=== PATIENT | male | born 1935 | race Caucasian/White ===

== ENCOUNTER 2020-10-01 09:43 | Emergency (ER) | payer BC, OTHER ==
[2020-10-01 09:51] VITALS: BMI 55.2
[2020-10-01] MEDS ORDERED: ACETAMINOPHEN 325 MG TABLET (FP) PO ONE (10:56)
[2020-10-01] MEDS ORDERED: DIPHTH,PERTUSS(ACELL),TET 0.5 ML DISP.SYRIN IM ONE ×2 (10:57→12:33)
[2020-10-01 12:02] LABS: BASO % 0.2 % (0-2.0); HEMATOCRIT 47.9 % (35.4-49); HEMOGLOBIN 16.2 GM/dL (11.7-16.9); LYMPH % 11.1 % (8-40); MCH 30.1 pg (25.7-33.7); MCHC 33.8 g/dl (32.0-35.9); MEAN CELL VOLUME 88.9 fl (80-96); MEAN PLT VOLUME 9.2 fl (7.5-11.1); MONO % 8.1 % (3.8-10.2); NEUT % 79.6 % (42.8-82.8); PLATELET COUNT 180 K/MM3 (134-434); RBC 5.39 M/mm3 (4.00-5.60); RDW 14.7 % (11.9-15.9); WHITE BLOOD COUNT 9.9 K/mm3 (4.0-10.0)
[2020-10-01 12:09] LABS: INR 1.1 (0.83-1.09); PROTHROMBIN TIME (PATIENT) 13.5 SEC (9.7-13.0)
[2020-10-01 12:12] LABS: ACTIVATED PTT 30.1 SECONDS (25.2-36.5)
[2020-10-01] MEDS ORDERED: ACETAMINOPHEN 325 MG TABLET (FP) ONE (12:32)
[2020-10-01 12:37] LABS: CALCIUM 10.3 mg/dL (8.5-10.1)
[2020-10-01 12:38] LABS: ALBUMIN 3.6 g/dl (3.4-5.0); BLOOD UREA NITROGEN 20.1 mg/dL (7-18)
[2020-10-01 12:41] LABS: CREATININE 1.1 mg/dL (0.55-1.3)
[2020-10-01 12:42] LABS: TOT PROT 6.7 g/dl (6.4-8.2)
[2020-10-01 14:55] VITALS: BP 100/69; PULSE 89; TEMP 98.5
== END 2020-10-01 14:54 | disposition home or self-care (01) ==
LOC: JER 09:43
PROC: 3E0234Z Introduction of Serum, Toxoid and Vaccine into Muscle, Percutaneous Approach (ICD-10-PCS; principal; 2020-10-01)
DX: S82.832A Other fracture of upper and lower end of left fibula, initial encounter for closed fracture (principal); S09.90XA Unspecified injury of head, initial encounter; S01.01XA Laceration without foreign body of scalp, initial encounter
CPT/HCPCS: 36415; 70450-TC; 72125-TC; 72170-TC-FY; 73110-TC-RT-FY; 73130-TC-RT-FY; 73590-TC-LT-FY; 73610-TC-LT-FY; 80053; 82550; 82553; 84484; 85025; 85610; 85730; 90471; 90715; 99285-25

== ENCOUNTER 2020-10-08 04:18 | Inpatient (IN) | payer BC ==
[2020-10-08] MEDS ORDERED: BUPIVACAINE HCL 100 ML ONE (08:25)
[2020-10-08] MEDS ORDERED: BUPIVACAINE LIPOSOME/PF (EXPAREL) 266 MG/20 ML VIAL ONE (08:25)
[2020-10-08] MEDS ORDERED: SODIUM CHLORIDE 0.9% P/F 10 ML VIAL IJ ONE ×2 (08:30→08:32)
[2020-10-08] MEDS ORDERED: MIDAZOLAM HCL 2 MG/2 ML SINGLE DOSE VIAL ONE ×2 (08:30)
[2020-10-08] MEDS ORDERED: PROPOFOL 20 ML ONE (09:34)
[2020-10-08] MEDS ORDERED: BUPIVACAINE HCL 50 ML ONE (10:15)
[2020-10-08] MEDS ORDERED: ceFAZolin SODIUM 1 GM VIAL IVPB ONE (10:25)
[2020-10-08] MEDS ORDERED: ceFAZolin SODIUM 1 GM VIAL ONE (10:39)
[2020-10-08] MEDS ORDERED: ceFAZolin 2 GRAM PREMIX BAG IVPB ONE (11:00)
[2020-10-08] MEDS ORDERED: ONDANSETRON 4 MG/2 ML VIAL IVPUSH PRN (14:17)
[2020-10-08] MEDS ORDERED: LACTATED RINGERS SOLUTION 1,000 ML IV SCH (14:30)
[2020-10-08] MEDS: ceFAZolin 2 GRAM PREMIX BAG IVPB SCH (17:11)
[2020-10-08] MEDS: oxyCODONE HCL 5 MG TABLET PO PRN (23:18)
[2020-10-09] MEDS: ceFAZolin 2 GRAM PREMIX BAG IVPB SCH (01:51)
[2020-10-09] MEDS: ASPIRIN COATED 81 MG TABLET.EC PO SCH (09:14)
[2020-10-09] MEDS: HYDROCHLOROTHIAZIDE 25 MG TABLET (FP) PO SCH (09:14)
[2020-10-09] MEDS: MULTIVITAMINS THER W-MINERALS COMBO TABLET (FP) PO SCH (09:14)
[2020-10-09] MEDS: oxyCODONE HCL 5 MG TABLET PO PRN (09:16)
[2020-10-09] MEDS ORDERED: PATIENT'S OWN MEDICATION (NON-FORMULARY) (Timolol Maleate/Pf [Timolol Maleate 0.5% Eye Dro OP SCH (10:00)
[2020-10-09 17:21] VITALS: BMI 24.5
[2020-10-10] MEDS: ASPIRIN COATED 81 MG TABLET.EC PO SCH (09:35)
[2020-10-10] MEDS: HYDROCHLOROTHIAZIDE 25 MG TABLET (FP) PO SCH (09:35)
[2020-10-10] MEDS: MULTIVITAMINS THER W-MINERALS COMBO TABLET (FP) PO SCH (09:36)
[2020-10-11] MEDS: ASPIRIN COATED 81 MG TABLET.EC PO SCH (09:39)
[2020-10-11] MEDS: MULTIVITAMINS THER W-MINERALS COMBO TABLET (FP) PO SCH (09:39)
[2020-10-11] MEDS: HYDROCHLOROTHIAZIDE 25 MG TABLET (FP) PO SCH (09:39)
[2020-10-11 14:20] VITALS: BP 121/68; PULSE 81; TEMP 97.4
== END 2020-10-11 15:13 | DRG 494 ==
LOC: JASU-SURG 04:18 → JASUSAT 04:18 → J6S 15:25 → JASUSAT 10-09 15:55 → J6S 10-09 15:56
PROVIDERS: ADMIT Orthopaedic Surgery; ATTEND Orthopaedic Surgery
PROC: 0QSK04Z Reposition Left Fibula with Internal Fixation Device, Open Approach (ICD-10-PCS; principal; 2020-10-08 10:00)
DX: S82.62XA Displaced fracture of lateral malleolus of left fibula, initial encounter for closed fracture (principal); X58.XXXA Exposure to other specified factors, initial encounter; Y93.9 Activity, unspecified; Y92.9 Unspecified place or not applicable
CPT/HCPCS: 76000-TC-FY; 94760; 97116-GP; 97162-GP; C9803; U0003; U0005